=== PATIENT | female | born 1950 | race Caucasian/White ===

== ENCOUNTER → 2018-10-19 | Outpatient (CLI) | payer MEDICARE, OTHER ==
--- NOTE | 2018-10-20 12:30 | RADIOLOGY REPORT (SQ) ---
EXAM DESCRIPTION: PET CT SKULL/THIGH COMPLETED DATE/TIME: 10/19/2018 10:19 pm REASON FOR STUDY: LUNG MASS R91.8 OTHER NONSPECIFIC ABNORMAL FINDING OF LUNG FIELD COMPARISON: CT chest 10/13/2018, [employer] RADIONUCLIDE AND DOSE: 8.9 mCi F18 FDG The route of agent administration: Intravenous FASTING BLOOD SUGAR: 127 mg/dl CONTRAST TYPE AND DOSE: No CT contrast given. TECHNIQUE: Blood glucose level was verified. Above dose of FDG was injected intravenously. 2-D seg mented attenuation correction images were obtained from the base of the skull to the midthighs. Nonc ontrast CT images were obtained for attenuation correction and fusion with emission images. CT image s were performed without oral or intravenous contrast and are not sensitive for parenchymal lesions. A series of overlapping emission PET images were obtained. Images reviewed and manipulated at [facility] work station by the radiologist. Images stored on PACS. LIMITATIONS: None. FINDINGS: HEAD AND NECK: No areas of abnormal metabolic activity in the soft tissues of the head and neck. CHEST: At the left lung apex, a 4 x 2.5 cm mass is present with air bronchograms and ill-defined marva ins. This is unchanged from 10/13/2018. This has activity less than baseline, SUV 2.2. However, this is an abnormal lung parenchymal finding and malignancy (bronchoalveolar carcinoma) could not be excl uded. Left lung biopsy is recommended for followup. Remainder of the lung parenchyma is otherwise unremarkable. No other nodules. No pleural effusion o r pneumothorax. No worrisome mediastinal lymph nodes. ABDOMEN AND PELVIS: Splenomegaly is present, without increased metabolic activity. Stones in the gal lbladder without gallbladder wall thickening. Post hysterectomy. PROXIMAL LOWER EXTREMITIES: No areas of abnormal metabolic activity in the soft tissues of the lower extremities. BONES: No abnormal metabolic activity in the visualized skeleton. ADDITIONAL CT FINDINGS: No additional significant findings on the noncontrast CT images. OTHER: Blood pool activity 3 SUV. Liver activity 3.8 SUV IMPRESSION: 4 x 2.5 cm left apical lung mass with air bronchograms. No significant increased metabo lic activity above baseline. However, this could still indicate an unusual malignancy like bronchoal veolar carcinoma and CT-guided lung biopsy left apical mass is recommended for followup TECHNICAL DOCUMENTATION: JOB ID: [id number] [employer]- All Rights Reserved Reading location - IP/workstation name: [facility]
== END ==
LOC: RAD 19:36
PROVIDERS: ATTEND Family Medicine
DX: R91.1 Solitary pulmonary nodule (principal); K80.20 Calculus of gallbladder without cholecystitis without obstruction
CPT/HCPCS: 78815; A9552

== ENCOUNTER → 2018-12-08 | Outpatient (CLI) | payer MEDICARE, OTHER ==
--- NOTE | 2018-12-08 22:33 | XCELERA REPORT ---
[address] [address] Transthoracic Echocardiogram Report Name: MELISSA BRISCOE Age: 68 yrs Gender: Female : 1950 Patient Status: Outpatient Patient Location: [facility] Study Date: 12/08/2018 11:27 AM Height: 64 in Weight: 248 lb BSA: 2.1 m2 Reason For Study: HTN Ordering Physician: GI BARNETT Performed By: Lobo Segovia Interpretation Summary Small atrial septal aneurysm, suspect trivial L to R shunt, needs bubble contrast to confirm. No LA enlargement. Mild AV sclerosis, no , no AR. Mild MAC, no MS, mild MR wuth no LA enlargement No LVH, multiple hypokinetic segment, IVS, Inferior wall , with low normal LVEF 50-55%. and LV diastolic dysfunction stage I. RH poorly seen no pulm hypertension. MMode/2D Measurements & Calculations RVDd: 2.9 cm LVIDd: 5.3 cm FS: 28.1 % Ao root diam: 3.1 cm IVSd: 0.93 cm LVIDs: 3.8 cm EDV(Teich): 133.1 ml LVPWd: 0.93 cm ESV(Teich): 61.2 ml Ao root area: 7.6 cm2 LA dimension: 3.8 cm EF(Teich): 54.0 % Doppler Measurements & Calculations MV E max eleanor: MV P1/2t max eleanor: Ao V2 max: LV V1 max P.6 cm/sec 62.3 cm/sec 139.9 cm/sec 4.8 mmHg MV A max eleanor: MV P1/2t: 104.8 msec Ao max PG: LV V1 max: 106.1 cm/sec MVA(P1/2t): 2.1 cm2 7.8 mmHg 110.1 cm/sec MV E/A: 0.68 MV dec slope: 174.1 cm/sec2 MV dec time: 0.21 sec PA V2 max: PI end-d eleanor: TR max eleanor: MV P1/2t-pr_phl: 86.4 cm/sec 89.2 cm/sec 240.3 cm/sec 104.8 msec PA max P.0 mmHg TR max P.1 mmHg Left Ventricle The left ventricle is normal in size. There is normal left ventricular wall thickness. The left ventricular ejection fraction is normal. LV EF is 55%. Doppler measurements suggest impaired left ventricular relaxation, which is associated with grade I/IV or mild diastolic dysfunction. There are regional wall motion abnormalities as specified. Thrombus can not be excluded. Right Ventricle The right ventricle is grossly normal size. The right ventricular systolic function is normal. Atria The right atrium is normal. The left atrial size is normal. Doppler evidence suggests a left to right interatrial shunt. A patent foramen ovale is suspected. The atrial septum is aneurysmal. Mitral Valve There is mild mitral leaflet calcification. There is no evidence of mitral valve prolapse. There is no vegetation seen on the mitral valve. There is no mitral valve stenosis. There is a mild amount of mitral regurgitation. Aortic Valve The aortic valve opens well. The aortic valve is trileaflet. The aortic valve is sclerotic and shows some degree of functional abnormality. There is no aortic valvular vegetation. There is no aortic valve stenosis. No aortic regurgitation is present. Tricuspid Valve The tricuspid valve is not well visualized secondary to technical limitations. Doppler findings do not suggest pulmonary hypertension. Pulmonic Valve The pulmonic valve is not well visualized. There is a trace or physiologic amount of pulmonic regurgitation. Great Vessels The aortic root is normal size. Effusions There is no pericardial effusion. I WMSI = 1.56 % Normal = 44 Segments Size X - Cannot 2 - 4 - 1-2 small Interpret 1 - Normal Hypokinetic 3 - AkineticDyskinetic 3-5 moderate 5 - 6-14 large Aneurysmal 15-16 diffuse : GI BARNETT > Rubio Villanueva
== END ==
LOC: SP 10:27
PROVIDERS: ATTEND Surgery
DX: Z01.810 Encounter for preprocedural cardiovascular examination (principal); I10 Essential (primary) hypertension
CPT/HCPCS: 93306

== ENCOUNTER → 2018-12-10 | Outpatient (CLI) | payer MEDICARE, OTHER ==
[~2018-12-10] MED LIST: REGADENOSON INJ 0.4 MG/5 ML DISP.SYRIN IV ONE
--- NOTE | 2018-12-14 00:01 | DRAGON STRESS TEST REPORT ---
Intravenous Lexiscan Cardiolite stress test using single photon emmision computerized tomography. Date of procedure: 12/10/2018. Ordering Provider: Fitz and nallely an Patient's status: Out Patient. Indication: Chest pain in the patient CAD risk factors this patient and hence preoperative cardiac risk assessment.. Coronary risk factors: Age, diabetes, hypertension, and dyslipidemia. Resting EKG: Sinus Rhythm. Within Normal Limits. Stress EKG: No changes of ischemia. Reason for termination: Protocol. The patient had no chest pain or discomfort, and there were no arrhythmias seen. Conclusions: Normal EKG and hemodynamic response to IV Lexiscan. Nuclear data: At rest the patient was given 14.58 millicuries of technetium 99m sestamibi injected intravenously. As per protocol rest non gated SPECT images were obtained. Subsequently the patient was given intravenous Lexiscan at a dose of 0.4 mg in 5 mL intravenously, followed by flush with normal saline. Subsequently the stress dose of 43.8 millicuries of technetium 99m sestamibi was injected intravenously. As per protocol stress gated images were obtained. Nuclear interpretation: Review of images showed that there is significant breast attenuation artifact of the anterior wall, and bowel contamination artifact of the inferior wall. Physical study the interpreted. In spite of this probably all segments of the myocardium had normal perfusion at rest, and normal perfusion post stress with IV Lexiscan. All segments of the myocardium had normal motion, contraction, and thickening by gated study. T. I D. ratio was normal at 0.96. There is no transient ischemic dilatation of the left ventricle. Computer read rest, and stress left ventricular ejection fraction were 62 %, and 64 %, respectively. Conclusion: 1. There is most likely no scintigraphic evidence of Lexiscan induced myocardial ischemia. 2. There is no scintigraphic evidence of myocardial infarction/scar. Recommendations: 1. Correlate clinically. 2. Aggressive risk factor modification, and treating the underlying co- morbidities. LOI
== END ==
LOC: RAD 06:48
PROVIDERS: ATTEND Surgery
DX: Z01.810 Encounter for preprocedural cardiovascular examination (principal); I10 Essential (primary) hypertension
CPT/HCPCS: 93017; 78452; A9500; J2785; Q9969

== ENCOUNTER → 2019-01-20 | Outpatient (CLI) | payer MEDICARE, OTHER ==
--- NOTE | 2019-01-20 09:47 | RADIOLOGY REPORT (SQ) ---
EXAM DESCRIPTION: CT CHEST WITH COMPLETED DATE/TIME: 01/20/2019 8:15 am REASON FOR STUDY: LUNG CA (C34.12) C34.12 MALIGNANT NEOPLASM OF UPPER LOBE, LEFT BRONCHUS OR DES COMPARISON: PET-CT 10/19/2018 TECHNIQUE: CT scan of the chest performed using helical scanning technique with dynamic intravenous contrast injection. Images reviewed with lung, soft tissue and bone windows. Reconstructed coronal and sagittal MPR and MIP images reviewed. All images stored on PACS. All CT scanners at this facility use dose modulation, iterative reconstruction, and/or weight based d osing when appropriate to reduce radiation dose to as low as reasonably achievable (ALARA). [facility]: Dose Right [facility]: CareDose [facility]: Dose Right [facility]: Teradose 4D [facility]: [employer] CONTRAST TYPE AND DOSE: contrast/concentration: Isovue 350.00 mg/ml; Total Contrast Delivered: 80.0 ml; Total Saline Delivered: 55.0 ml RENAL FUNCTION: Creatinine 0.8 RADIATION DOSE: CT Rad equipment meets quality standard of care and radiation dose reduction techniq ues were employed. CTDIvol: 15.3 mGy. DLP: 632 mGy-cm. . LIMITATIONS: None. FINDINGS: LUNGS AND PLEURA: 4 x 2.5 cm left apical lung parenchymal mass with surrounding radiothera py treatment markers, unchanged in size compared to 10/19/2018. No acute infiltrates. No pleural effusions. No pneumothorax. HILAR AND MEDIASTINAL STRUCTURES: No identified masses or abnormal nodes. Benign right epicardial fa t pad HEART AND VASCULAR STRUCTURES: No aneurysm or dissection. No central pulmonary emboli. No pericardi al effusion. HARDWARE: None in the chest. UPPER ABDOMEN: Calcified stones in the gallbladder. Right upper pole 3.4 x 3 cm fatty mass likely an angiomyolipoma, non metabolic on prior PET-CT. 1.5 cm right adrenal, 2 cm and 2.3 cm left adrenal n odules, benign, non metabolic on prior PET-CT. THYROID AND OTHER SOFT TISSUES: No masses. No adenopathy. BONES: No significant finding. OTHER: No other significant finding. IMPRESSION: Persistent left upper lobe mass with radiotherapy treatment markers. Mass is unchanged from PET-CT 10/19/2018 TECHNICAL DOCUMENTATION: JOB ID: [id number] Quality ID # [id number]: Final reports with documentation of one or more dose reduction techniques (e.g., Au tomated exposure control, adjustment of the mA and/or kV according to patient size, use of iterative reconstruction technique) 2010 [employer]- All Rights Reserved Reading location - IP/workstation name: [email or web address]
== END ==
LOC: RAD 07:31
PROVIDERS: ATTEND Internal Medicine
DX: C34.12 Malignant neoplasm of upper lobe, left bronchus or lung (principal)
CPT/HCPCS: 71260; 82565

== ENCOUNTER → 2019-06-01 | Outpatient (CLI) | payer MEDICARE, OTHER ==
--- NOTE | 2019-06-01 08:48 | RADIOLOGY REPORT (SQ) ---
EXAM DESCRIPTION: CT CHEST WITH COMPLETED DATE/TIME: 06/01/2019 8:06 am REASON FOR STUDY: LUNG CA (C34.12) C34.12 MALIGNANT NEOPLASM OF UPPER LOBE, LEFT BRONCHUS OR DES COMPARISON: CT of the chest with contrast from 01/20/2019 and PET from 10/19/2018. TECHNIQUE: CT scan of the chest performed using helical scanning technique with dynamic intravenous contrast injection. Images reviewed with lung, soft tissue and bone windows. Reconstructed coronal and sagittal MPR and MIP images reviewed. All images stored on PACS. All CT scanners at this facility use dose modulation, iterative reconstruction, and/or weight based d osing when appropriate to reduce radiation dose to as low as reasonably achievable (ALARA). [facility]: Dose Right [facility]: CareDose [facility]: Dose Right [facility]: Teradose 4D [facility]: [employer] CONTRAST TYPE AND DOSE: Contrast/Concentration: Isovue 350.00 mg/ml; Total Contrast Delivered: 80.0 ml; Total Saline Delivered: 55.0 ml RENAL FUNCTION: GFR > 60. RADIATION DOSE: CT Rad equipment meets quality standard of care and radiation dose reduction techniq ues were employed. CTDIvol: 15.6 mGy. DLP: 661 mGy-cm. . LIMITATIONS: None. FINDINGS: LUNGS AND PLEURA: Status post left upper lobe lobectomy. The scattered nodular ground-gla ss opacities throughout the right upper, right middle, right lower, and left lower lobes are unchange d (for reference refer to images 26, 35, 51, 57, 69, 74, and 75 of series 4). There is no new or enl arging pulmonary nodule or mass. The trachea is patent. The abrupt cut off of the left upper lobe bronchus is consistent with recent lobectomy. There is mild bilateral peribronchial thickening ; there is no bronchiectasis or mucus pl ugging. There is no consolidation, pleural effusion or pneumothorax. The linear opacities in the anterior as pect of the left lower lobe could represent bands of atelectasis or scar. HILAR AND MEDIASTINAL STRUCTURES: No enlarged mediastinal or hilar adenopathy. HEART AND VASCULAR STRUCTURES: The thoracic aorta is nonaneurysmal. There is no cardiomegaly or renetta cardial effusion. There is no filling defect within the right and left pulmonary arteries. HARDWARE: Surgical clips in the left hilar region consistent with recent left upper lobectomy. UPPER ABDOMEN: Stable 1.5 x 1.2 right adrenal and 2 x 2 cm and 2.2 x 1.8 cm left adrenal nodules. Th e 3.1 x 2.7 cm exophytic mass that arises from the upper pole of the right kidney and contains fat is also unchanged and could represent an angiomyolipoma. There are calculi within the gallbladder lume n; no associated gallbladder wall thickening or pericholecystic inflammation is identified. There is a hiatal hernia. There is no enlarged upper abdominal adenopathy. THYROID AND OTHER SOFT TISSUES: Stable subcentimeter hypodense lesion in the right lobe of the thyroi d gland (image 8 of series 2). There is no enlarged supraclavicular or hilar adenopathy. BONES: Chronic fracture deformity of the left lateral 7th rib. OTHER: No other finding. IMPRESSION: 1. Status post left upper lobectomy. There are scattered nodular ground-glass opacities throughout the right upper, right middle, right lower, and left lower lobes that are unchanged (for reference refer to images 26, 35, 51, 57, 69, 74, and 75 of series 4) - based on the associated bronc hial wall thickening these findings could represent a component of a smoking-related disease such as respiratory bronchiolitis. 2. Other stable secondary as detailed above. TECHNICAL DOCUMENTATION: JOB ID: [id number] Quality ID # [id number]: Final reports with documentation of one or more dose reduction techniques (e.g., Au tomated exposure control, adjustment of the mA and/or kV according to patient size, use of iterative reconstruction technique) 2010 [employer]- All Rights Reserved Reading location - IP/workstation name: [email or web address]
== END ==
LOC: RAD 07:22
PROVIDERS: ATTEND Internal Medicine
DX: C34.12 Malignant neoplasm of upper lobe, left bronchus or lung (principal)
CPT/HCPCS: 71260

== ENCOUNTER → 2019-11-30 | Outpatient (CLI) | payer MEDICARE, OTHER ==
--- NOTE | 2019-11-30 08:50 | RADIOLOGY REPORT (SQ) ---
EXAM DESCRIPTION: CT CHEST WITH COMPLETED DATE/TIME: 11/30/2019 8:25 am REASON FOR STUDY: MALIGNANT NEOPLASM OF UPPER LOBE, LEFT BRONCHUS OR LUNG C34.12 MALIGNANT NEOPLASM OF UPPER LOBE, LEFT BRONCHUS OR DES COMPARISON: None. TECHNIQUE: CT scan of the chest performed using helical scanning technique with dynamic intravenous contrast injection. Images reviewed with lung, soft tissue and bone windows. Reconstructed coronal and sagittal MPR and MIP images reviewed. All images stored on PACS. All CT scanners at this facility use dose modulation, iterative reconstruction, and/or weight based d osing when appropriate to reduce radiation dose to as low as reasonably achievable (ALARA). [facility]: Dose Right [facility]: CareDose [facility]: Dose Right [facility]: Teradose 4D [facility]: [employer] CONTRAST TYPE AND DOSE: contrast/concentration: Isovue 350.00 mg/ml; Total Contrast Delivered: 80.0 ml; Total Saline Delivered: 55.0 ml RENAL FUNCTION: GFR > 60. RADIATION DOSE: CT Rad equipment meets quality standard of care and radiation dose reduction techniq ues were employed. CTDIvol: 14.8 mGy. DLP: 621 mGy-cm. . LIMITATIONS: None. FINDINGS: LUNGS AND PLEURA: Status post left upper lobectomy. Occasional faint ground-glass nodules in both lungs, the largest about 6 mm right upper lobe on image 29 are all stable. No new or suspic ious nodules. HILAR AND MEDIASTINAL STRUCTURES: No identified masses or abnormal nodes. HEART AND VASCULAR STRUCTURES: No aneurysm or dissection. No central pulmonary emboli. No pericardi al effusion. HARDWARE: None in the chest. UPPER ABDOMEN: Stable. Upper pole right angiomyolipoma. Stable bilateral adrenal nodules. THYROID AND OTHER SOFT TISSUES: No masses. No adenopathy. BONES: No significant finding. OTHER: No other significant finding. IMPRESSION: Stable small ground-glass nodules. No progression. TECHNICAL DOCUMENTATION: JOB ID: [id number] Quality ID # [id number]: Final reports with documentation of one or more dose reduction techniques (e.g., Au tomated exposure control, adjustment of the mA and/or kV according to patient size, use of iterative reconstruction technique) 2010 [employer]- All Rights Reserved Reading location - IP/workstation name: [email or web address]
== END ==
LOC: RAD 07:58
PROVIDERS: ATTEND Internal Medicine
DX: C34.12 Malignant neoplasm of upper lobe, left bronchus or lung (principal); D17.79 Benign lipomatous neoplasm of other sites; E27.8 Other specified disorders of adrenal gland
CPT/HCPCS: 71260; 82565

== ENCOUNTER → 2020-03-03 | Outpatient (CLI) | payer MEDICARE, OTHER ==
--- NOTE | 2020-03-03 09:23 | RADIOLOGY REPORT (SQ) ---
EXAM DESCRIPTION: CT CHEST WITH IMAGES COMPLETED DATE/TIME: 03/03/2020 8:15 am REASON FOR STUDY: MALIGNANT NEOPLASM OF UPPER LOBE, LEFT BRONCHUS OR LUNG C34.12 MALIGNANT NEOPLASM OF UPPER LOBE, LEFT BRONCHUS OR DES COMPARISON: 11/30/2019, 08/26/2019, 06/01/2019 TECHNIQUE: CT scan of the chest performed using helical scanning technique with dynamic intravenous contrast injection. Images reviewed with lung, soft tissue and bone windows. Reconstructed coronal and sagittal MPR and MIP images reviewed. All images stored on PACS. All CT scanners at this facility use dose modulation, iterative reconstruction, and/or weight based d osing when appropriate to reduce radiation dose to as low as reasonably achievable (ALARA). [facility]: Dose Right [facility]: CareDose [facility]: Dose Right [facility]: Teradose 4D [facility]: [employer] CONTRAST TYPE AND DOSE: 80 mL Omnipaque 350- low osmolar. RENAL FUNCTION: Creatinine 0.9 RADIATION DOSE: CT Rad equipment meets quality standard of care and radiation dose reduction techniq ues were employed. CTDIvol: 18.0 mGy. DLP: 763 mGy-cm. . LIMITATIONS: He had FINDINGS: LUNGS AND PLEURA: Status post left upper lobectomy. Stable scattered ground-glass opaciti es are seen bilaterally. No new ground-glass opacity or nodular density. No focal consolidation. N o pleural effusion. No pneumothorax. HILAR AND MEDIASTINAL STRUCTURES: No identified masses or abnormal nodes. HEART AND VASCULAR STRUCTURES: No aneurysm or dissection. No central pulmonary emboli. No pericardi al effusion. HARDWARE: None in the chest. UPPER ABDOMEN: Limited exam. Re- demonstration of a angiomyolipoma involving the superior pole the r ight kidney. Bilateral adrenal nodules are likewise stable in appearance. THYROID AND OTHER SOFT TISSUES: No masses. No adenopathy. BONES: No significant finding. OTHER: No other significant finding. IMPRESSION: Status post left upper lobectomy. Stable size, distribution, and imaging characteristic s of scattered ground-glass opacities seen throughout the lungs. No acute findings. TECHNICAL DOCUMENTATION: JOB ID: [id number] Quality ID # 436: Final reports with documentation of one or more dose reduction techniques (e.g., Au tomated exposure control, adjustment of the mA and/or kV according to patient size, use of iterative reconstruction technique) 2010 [employer]- All Rights Reserved Reading location - IP/workstation name: [email or web address]
== END ==
LOC: RAD 07:47
PROVIDERS: ATTEND Internal Medicine
DX: C34.12 Malignant neoplasm of upper lobe, left bronchus or lung (principal)
CPT/HCPCS: 71260; 82565

== ENCOUNTER → 2020-06-13 | Outpatient (CLI) | payer MEDICARE, OTHER ==
--- NOTE | 2020-06-13 09:31 | RADIOLOGY REPORT (SQ) ---
EXAM DESCRIPTION: CT CHEST WITH IMAGES COMPLETED DATE/TIME: 06/13/2020 8:51 am REASON FOR STUDY: LUNG CA C34.12 MALIGNANT NEOPLASM OF UPPER LOBE, LEFT BRONCHUS OR DES COMPARISON: 03/03/2020 TECHNIQUE: CT scan of the chest performed using helical scanning technique with dynamic intravenous contrast injection. Images reviewed with lung, soft tissue and bone windows. Reconstructed coronal and sagittal MPR and MIP images reviewed. All images stored on PACS. All CT scanners at this facility use dose modulation, iterative reconstruction, and/or weight based d osing when appropriate to reduce radiation dose to as low as reasonably achievable (ALARA). [facility]: Dose Right [facility]: CareDose [facility]: Dose Right [facility]: Teradose 4D [facility]: [employer] CONTRAST TYPE AND DOSE: contrast/concentration: Isovue 350.00 mmol/ml; Total Contrast Delivered: 80. 0 ml; Total Saline Delivered: 42.0 ml RENAL FUNCTION: See chart RADIATION DOSE: CT Rad equipment meets quality standard of care and radiation dose reduction techniq ues were employed. CTDIvol: 18.9 mGy. DLP: 792 mGy-cm. . LIMITATIONS: None. FINDINGS: LUNGS AND PLEURA: Postsurgical changes from the left upper lobectomy. There are multifoca l nodular areas of ground-glass opacity throughout both lungs, stable from prior. No new discrete no dules or masses. No definitive airspace disease. No pleural effusion or pneumothorax. HILAR AND MEDIASTINAL STRUCTURES: No identified masses or abnormal nodes. HEART AND VASCULAR STRUCTURES: No aneurysm or dissection. No central pulmonary emboli. No pericardi al effusion. HARDWARE: None in the chest. UPPER ABDOMEN: Hepatic steatosis. Cholelithiasis. No acute findings. Stable irregular soft tissue and fat density lesion along the right upper pole, compatible with an angiomyolipoma. THYROID AND OTHER SOFT TISSUES: No masses. No adenopathy. BONES: No significant finding. OTHER: No other significant finding. IMPRESSION: 1. No evidence of acute intrathoracic process. 2. Status post left upper lobectomy. Stable size and distribution of multifocal bilateral scattered ground-glass nodules throughout both lungs. 3. Hepatic steatosis. Cholelithiasis. Stable right renal angiomyolipoma. TECHNICAL DOCUMENTATION: JOB ID: [id number] Quality ID # [id number]: Final reports with documentation of one or more dose reduction techniques (e.g., Au tomated exposure control, adjustment of the mA and/or kV according to patient size, use of iterative reconstruction technique) 2010 [employer]- All Rights Reserved Reading location - IP/workstation name: [email or web address]
== END ==
LOC: RAD 07:57
PROVIDERS: ATTEND Nurse Practitioner Family
DX: C34.12 Malignant neoplasm of upper lobe, left bronchus or lung (principal); K80.20 Calculus of gallbladder without cholecystitis without obstruction; D17.71 Benign lipomatous neoplasm of kidney
CPT/HCPCS: 71260; 82565

== ENCOUNTER → 2020-09-19 | Outpatient (CLI) | payer MEDICARE, OTHER ==
--- NOTE | 2020-09-19 09:56 | RADIOLOGY REPORT (SQ) ---
EXAM DESCRIPTION: CT CHEST WITH IMAGES COMPLETED DATE/TIME: 09/19/2020 9:33 am REASON FOR STUDY: LUNG CANCER C34.12 MALIGNANT NEOPLASM OF UPPER LOBE, LEFT BRONCHUS OR DES COMPARISON: None. TECHNIQUE: CT scan of the chest performed using helical scanning technique with dynamic intravenous contrast injection. Images reviewed with lung, soft tissue and bone windows. Reconstructed coronal and sagittal MPR and MIP images reviewed. All images stored on PACS. All CT scanners at this facility use dose modulation, iterative reconstruction, and/or weight based d osing when appropriate to reduce radiation dose to as low as reasonably achievable (ALARA). [facility]: Dose Right [facility]: CareDose [facility]: Dose Right [facility]: Teradose 4D [facility]: [employer] CONTRAST TYPE AND DOSE: Contrast/concentration: Isovue 350.00 mmol/ml; Total Contrast Delivered: 80. 0 ml; Total Saline Delivered: 55.0 ml RENAL FUNCTION: GFR > 60. RADIATION DOSE: CT Rad equipment meets quality standard of care and radiation dose reduction techniq ues were employed. CTDIvol: 18.6 mGy. DLP: 741 mGy-cm. LIMITATIONS: None. FINDINGS: LUNGS AND PLEURA: Status post left upper lobectomy. The solid and sub solid nodular opaci ties scattered throughout the right lung are unchanged in size and number compared to the CT from 06/13/2020. There is no new or enlarging pulmonary nodule. There is no acute consolidation, ground-glas s opacification, pleural effusion or pneumothorax. HILAR AND MEDIASTINAL STRUCTURES: No adenopathy or mass. HEART AND VASCULAR STRUCTURES: No thoracic aortic dissection or aneurysm. No cardiomegaly or pericar dial effusion. HARDWARE: None in the chest. UPPER ABDOMEN: Stable bilateral adrenal lesions; for reference the lesions on the left measure 2.3 x 1.8 cm (image 58 of series 2) and 2.2 x 2 cm (image 61 of series 2). The diffuse low attenuation of the hepatic parenchyma is suggestive of underlying hepatic steatosis. The gallbladder is contracted and filled with calculi. The fat-containing exophytic lesion in the upper pole of the right kidney i s unchanged and consistent with an angiomyolipoma. THYROID AND OTHER SOFT TISSUES: No adenopathy or mass. BONES: No fracture or osseous lesion. OTHER: No other findings. IMPRESSION: 1. Status post left upper lobectomy. The solid and sub solid nodular opacities scatter ed throughout the right longer are unchanged in size and number compared to the CT from 06/13/2020. T here is no new or enlarging pulmonary nodule. 2. Stable bilateral adrenal lesions. 3. Stable fat-containing exophytic lesion in the upper pole of the right kidney consistent with an a ngiomyolipoma. 4. Cholelithiasis and hepatic steatosis. TECHNICAL DOCUMENTATION: JOB ID: [id number] Quality ID # [id number]: Final reports with documentation of one or more dose reduction techniques (e.g., Au tomated exposure control, adjustment of the mA and/or kV according to patient size, use of iterative reconstruction technique) 2010 [employer]- All Rights Reserved Reading location - IP/workstation name: [email or web address]
== END ==
LOC: RAD 09:11
PROVIDERS: ATTEND Internal Medicine
DX: C34.12 Malignant neoplasm of upper lobe, left bronchus or lung (principal); K80.20 Calculus of gallbladder without cholecystitis without obstruction; E27.8 Other specified disorders of adrenal gland; K76.0 Fatty (change of) liver, not elsewhere classified
CPT/HCPCS: 71260; 82565